=== PATIENT | female | born 1985 ===

== ENCOUNTER → 2022-02-23 | Emergency (ER) ==
[~2022-02-23] MED LIST: Acetaminophen/HYDROcodone 325-5 MG Tab PO ONE
== END ==
LOC: MW.ED 09:50
DX: S93.402A Sprain of unspecified ligament of left ankle, initial encounter (principal); Z88.6 Allergy status to analgesic agent; X50.9XXA Other and unspecified overexertion or strenuous movements or postures, initial encounter
CPT/HCPCS: 73610; 99283; A9270